=== PATIENT | male | born 1975 | race Caucasian/White ===

== ENCOUNTER 2023-02-13 18:02 | Emergency (ER) | payer OTHER ==
[~2023-02-13] VITALS: Ht 175.3 cm; Wt 84.0 kg
[2023-02-13 18:09] VITALS: BP 161/101
[2023-02-13 18:34] VITALS: BP 161/101
[2023-02-13] MEDS ORDERED: PREDNISONE10 MG PO (18:41)
[2023-02-13] MEDS ORDERED: ZYRTEC10 MG PO (18:41)
== END 2023-02-13 18:51 | disposition home or self-care (01) ==
LOC: ED 18:02
DX: R09.81 Nasal congestion (principal); I10 Essential (primary) hypertension